=== PATIENT | male | born 1960 | race Caucasian/White ===

== ENCOUNTER 2022-03-16 20:06 | Observation (INO) ==
[2022-03-17] MEDS ORDERED: SODIUM CHLORIDE 0.9% 500 ML IV STA (02:05)
[2022-03-17] MEDS ORDERED: PANTOPRAZOLE 40 MG VIAL IV STA (02:05)
[2022-03-17] MEDS ORDERED: ONDANSETRON 4 MG/2 ML VIAL IV STA (02:05)
[2022-03-17 02:58] LABS: Basophils % 0.5 % (0.0-0.8); Eosinophils # 0.3 10*3/uL (0.0-0.87); Eosinophils % 3.4 % (0.00-10.9); Hematocrit 30.2 VOL% (42.0-52.0); Hemoglobin 10.6 GM/DL (14.0-18.0); Immature Granulocytes % 0.5 %; Immature Granulocytes Absolute 0.04 #; Lymphocytes % 25.1 % (21.2-54.2); Mean Corpuscular HGB Conc 35.1 GM/DL (32-36); Mean Corpuscular Volume 95.9 FL (87-102); Mean Platelet Volume 10.4 FL (9.6-12.0); Monocytes # 0.5 10*3/uL (0.11-0.8); Neutrophils % 64.5 % (38.7-73.9); Platelet Count 252 T/CUMM (130-400); Red Blood Count 3.15 MC/CUMM (3.8-5.5); Red Cell Distribution Width 13.1 % (9.3-17.3)
[2022-03-17 03:34] LABS: Albumin 3.4 G/DL (3.4-5.0); Bilirubin,Total 0.5 MG/DL (0.20-1.00); Calcium 8.3 MG/DL (8.5-10.1); Osmolality,Calculated 279.4 MOS/KG (273-304); Potassium 3.7 MMOL/L (3.5-5.1); Total Protein 6.4 G/DL (6.4-8.2)
[2022-03-17 03:45] LABS: PT Patient Result 10.9 SECS (10.1-12.1)
[2022-03-17] MEDS ORDERED: ACETAMINOPHEN 325 MG TABLET PO PRN (04:21)
[2022-03-17] MEDS ORDERED: ONDANSETRON 4 MG/2 ML VIAL IV PRN (04:21)
[2022-03-17] MEDS ORDERED: SODIUM CHLORIDE 0.9% 1,000 ML IV PRN (04:27)
[2022-03-17] MEDS ORDERED: DIAZEPAM 5 MG TABLET PO PRN (04:29)
[2022-03-17 08:35] LABS: Hematocrit 28.5 VOL% (42.0-52.0); Hemoglobin 9.8 GM/DL (14.0-18.0)
[2022-03-17 09:18] LABS: % Iron Saturation 17.4 % (18-50); Ferritin 46.9 ng/mL (26-388)
[2022-03-17] MEDS: MULTIVITAMIN (CENTRUM) TABLET PO SCH (09:25)
[2022-03-17] MEDS: FOLIC ACID 1 MG TABLET PO SCH (09:25)
[2022-03-17] MEDS: PANTOPRAZOLE 40 MG TABLET PO SCH ×2 (09:26→22:34)
[2022-03-17] MEDS: THIAMINE 100 MG TABLET PO SCH (09:27)
[2022-03-17] MEDS: FERRIC GLUCONATE COMPLEX 125 MG in SODIUM CHLORIDE 0.9% 100 ML IV SCH (10:34)
[2022-03-17] MEDS ORDERED: INFLUENZA VIRUS VACCINE 0.5 ML SYRINGE IM ONE (12:29)
[2022-03-17 13:53] LABS: Hematocrit 28.1 VOL% (42.0-52.0); Hemoglobin 9.6 GM/DL (14.0-18.0)
[2022-03-17 20:00] LABS: Hematocrit 28.1 VOL% (42.0-52.0); Hemoglobin 9.6 GM/DL (14.0-18.0)
[2022-03-18 02:40] LABS: Basophils % 0.3 % (0.0-0.8); Eosinophils # 0.3 10*3/uL (0.0-0.87); Eosinophils % 5.1 % (0.00-10.9); Hematocrit 27.6 VOL% (42.0-52.0); Hemoglobin 9.2 GM/DL (14.0-18.0); Immature Granulocytes % 1.9 %; Immature Granulocytes Absolute 0.12 #; Lymphocytes # 1.6 10*3/uL (1.4-4.0); Lymphocytes % 25.9 % (21.2-54.2); Mean Corpuscular HGB Conc 33.3 GM/DL (32-36); Mean Corpuscular Volume 97.2 FL (87-102); Mean Platelet Volume 10.4 FL (9.6-12.0); Monocytes # 0.4 10*3/uL (0.11-0.8); Monocytes % 6.4 % (1.7-12.7); Neutrophils % 60.4 % (38.7-73.9); Platelet Count 234 T/CUMM (130-400); Red Blood Count 2.84 MC/CUMM (3.8-5.5); Red Cell Distribution Width 13.2 % (9.3-17.3); White Blood Count 6.3 T/CUMM (4-12)
[2022-03-18 03:03] LABS: Calcium 8.4 MG/DL (8.5-10.1); Osmolality,Calculated 274.7 MOS/KG (273-304); Potassium 3.7 MMOL/L (3.5-5.1)
[2022-03-18 07:53] LABS: Hematocrit 31.2 VOL% (42.0-52.0); Hemoglobin 10.4 GM/DL (14.0-18.0)
[2022-03-18] MEDS: FOLIC ACID 1 MG TABLET PO SCH (09:34)
[2022-03-18] MEDS: MULTIVITAMIN (CENTRUM) TABLET PO SCH (09:34)
[2022-03-18] MEDS: PANTOPRAZOLE 40 MG TABLET PO SCH (09:34)
[2022-03-18] MEDS: THIAMINE 100 MG TABLET PO SCH (09:34)
[2022-03-18] MEDS: FERRIC GLUCONATE COMPLEX 125 MG in SODIUM CHLORIDE 0.9% 100 ML IV SCH (11:16)
[2022-03-18 13:24] VITALS: BP 101/57
== END 2022-03-18 14:40 | disposition home or self-care (01) ==
LOC: N.EDINP 20:06 → N.ED 20:06 → SUATTDRO 03-17 04:21 → N.2W 03-17 13:01
PROVIDERS: ADMIT Family Medicine; ATTEND Internal Medicine